=== PATIENT | female | born 1945 | race Caucasian/White ===

== ENCOUNTER → 2023-12-08 07:18 | Day surgery (SDC) | payer MEDICARE, OTHER, SELFPAY ==
[2023-12-08 10:45] LABS: Hematocrit 41.4 % (37.0-47.0); Mean Corp Hgb Conc. 33.8 g/dL (33.0-37.0); Mean Corpuscular Hgb 32.3 pg (27.0-31.0); Mean Corpuscular Volume 95.4 fL (81.0-99.0); Mean Platelet Volume 10.3 fL (7.4-10.4); Platelet Count 258 10^3/uL (130-400); Red Blood Cell Count 4.34 10^6/uL (4.20-5.40); Red Cell Dist. Width 12.1 % (11.5-14.5); White Blood Cell Count 6.6 10^3/uL (4.8-10.8)
[2023-12-08 10:54] LABS: Blood Urea Nitrogen 23 mg/dl (7-17); Calcium 9.9 mg/dl (8.4-10.2); Carbon Dioxide 27 mmol/L (22-30); Chloride 102 mmol/L (98-107); Glucose 87 mg/dl (70-99); Potassium 4.5 mmol/L (3.5-5.1); Sodium 140 mmol/L (135-145); eGFR > 60.00
== END ==
LOC: SDSPAT 07:18
PROVIDERS: ATTENDING PHYSICIAN Obstetrics & Gynecology; FAMILY PHYSICIAN Family Medicine
DX: Z01.810 Encounter for preprocedural cardiovascular examination (principal); Z01.812 Encounter for preprocedural laboratory examination
CPT/HCPCS: 93005; 36415; 80048; 85027; 86850; 86900; 86901

== ENCOUNTER 2023-12-14 06:34 | Day surgery (SDC) | payer MEDICARE, OTHER, SELFPAY ==
[2023-12-08 09:16] VITALS: BMI 29.8
--- NOTE | 2023-12-09 12:48 | PTCARENOTE ---
Abn ECG, Dr. Murphy notified, no requests made.
[2023-12-14 11:03] VITALS: BMI 26.4
[2023-12-14 11:05] VITALS: BP 194/92
[2023-12-14] MEDS: Pyridium 200 MG PO (11:22)
[2023-12-14] MEDS: NORMOSOL-R/PLASMALYTE-A 1000 IV (11:23)
[2023-12-14 13:30] VITALS: BP 167/67; BP 194/92
[2023-12-14 13:46] VITALS: BP 156/74
[2023-12-14 14:00] VITALS: BP 167/72
[2023-12-14 14:40] VITALS: BP 163/90
[2023-12-14 15:10] VITALS: BP 158/87
== END 2023-12-14 15:30 | disposition home or self-care (01) ==
LOC: SDS 06:34
PROVIDERS: ATTENDING PHYSICIAN Obstetrics & Gynecology
DX: N81.2 Incomplete uterovaginal prolapse (principal); N39.3 Stress incontinence (female) (male)
CPT/HCPCS: 57282; 57288; 57260; 86900; 86901; C1771